=== PATIENT | female | born 1965 | race Caucasian/White ===

== ENCOUNTER 2025-05-13 12:15 | Outpatient (REF) | payer SELFPAY ==
[2025-05-13 21:31] LABS: RBC 20-50 HPF (0-2); WBC 20-50 HPF (0-5)
== END 2025-05-13 12:16 | disposition home or self-care (01) ==
LOC: LBN 12:15
PROVIDERS: PCP Internal Medicine; Visit Provider Physician Assistant Medical
DX: R30.0 Dysuria (principal)
CPT/HCPCS: 87077; 81015; 87086; 87186